=== PATIENT | male | born 1980 | race Caucasian/White ===

== ENCOUNTER → 2020-08-18 14:48 | Outpatient (CLI) | payer BC, SELFPAY ==
[2020-08-18] MEDS: COVID-19 VACC, Ad26(JANSSEN)/PF 0.5 ML IM (14:51)
== END ==
PROVIDERS: PCP Family Medicine; Visit Provider Internal Medicine
DX: Z23 Encounter for immunization (principal)
CPT/HCPCS: 0031A; 91303